=== PATIENT | female | born 1950 | race Caucasian/White ===

== ENCOUNTER → 2020-08-21 11:05 | Outpatient (CLI) | payer MEDICARE, SELFPAY ==
--- NOTE | 2020-08-21 | DI.US.S_ITS ---
PROCEDURE: US THYROID INDICATIONS: Hypothyroidism, unspecified TECHNIQUE: Real-time scanning was performed of the thyroid gland, with image documentation. COMPARISON: None. FINDINGS: Right: Thyroid lobe measures 6.0 x 2.1 x 2.2 cm, and is slightly heterogeneous in echotexture. No dominant nodule. Left: Thyroid lobe measures 5.6 x 1.9 x 2.6 cm, and is slightly heterogeneous in echotexture. No dominant nodule. Isthmus: Five mm thick. IMPRESSION: Mildly heterogeneous thyroid gland without dominant nodule. Findings are compatible with hypothyroidism. Dictated by: Elsie Patel M.D. on 08/21/2020 at 13:05 Approved by: Elsie Patel M.D. on 08/21/2020 at 13:06
== END ==
PROVIDERS: Family Provider Family Medicine; PCP Family Medicine; Referring Provider Family Medicine; Visit Provider Family Medicine
DX: E03.9 Hypothyroidism, unspecified (principal)
CPT/HCPCS: 76536

== ENCOUNTER → 2022-06-22 09:10 | Outpatient (CLI) | payer MEDICARE, SELFPAY ==
--- NOTE | 2022-06-22 09:13 | DI.RAD.S_ITS ---
PROCEDURE: XR HAND LT MIN 3V INDICATIONS: LEFT HAND AND WRIST PAIN TECHNIQUE: 3 views of the hand acquired. COMPARISON: None. FINDINGS: Bones: No acute fractures or dislocations. Carpal bones are normally aligned. No suspicious bony lesions. Generalized osteopenia. Emfr-ks-[id number] degenerative changes at the 1st carpometacarpal joint and triscaphe joint and there are mild degenerative changes at the interphalangeal joints of the fingers. Soft tissues: No suspicious soft tissue calcifications. IMPRESSION: Fwji-mc-mnjkpaxb osteoarthrosis. Generalized osteopenia. No acute osseous abnormality. Approved by: Devon Jackson M.D. on 06/22/2022 at 12:44
--- NOTE | 2022-06-22 09:13 | DI.RAD.S_ITS ---
PROCEDURE: XR HIP W PEL IF DONE RT 2V INDICATIONS: RIGHT HIP PAIN TECHNIQUE: AP pelvis with lateral few of the right hip. COMPARISON: None. FINDINGS: Bones: No fractures or dislocations. Pelvic ring appears intact. No suspicious bony lesions. Mild degenerative changes in the hips with marginal osteophyte formation. Mild degenerative changes are seen in the included lumbar spine. Soft tissues: The visualized bowel gas pattern is normal. No suspicious soft tissue calcifications. IMPRESSION: Mild bilateral hip osteoarthrosis. Approved by: Devon Jackson M.D. on 06/22/2022 at 12:45
--- NOTE | 2022-06-22 09:13 | DI.RAD.S_ITS ---
PROCEDURE: XR WRIST LT MIN 3V INDICATIONS: LEFT HAND AND WRIST PAIN TECHNIQUE: 3 views of the wrist were acquired. COMPARISON: None. FINDINGS: Bones: No acute fractures or dislocations. Generalized osteopenia. [id number] degenerative changes are seen at the 1st carpometacarpal joint and the triscaphe joint. No suspicious bony lesions. Soft tissues: No suspicious soft tissue calcifications. IMPRESSION: Kdgy-al-krzxvvmx osteoarthrosis of the 1st carpometacarpal and triscaphe joints. Generalized osteopenia. No acute osseous abnormality. Approved by: Devon Jackson M.D. on 06/22/2022 at 12:46
== END ==
PROVIDERS: Family Provider Family Medicine; PCP Family Medicine; Referring Provider Family Medicine; Visit Provider Family Medicine
DX: M18.12 Unilateral primary osteoarthritis of first carpometacarpal joint, left hand (principal); M19.032 Primary osteoarthritis, left wrist; M85.842 Other specified disorders of bone density and structure, left hand; M16.0 Bilateral primary osteoarthritis of hip; M25.542 Pain in joints of left hand; M25.551 Pain in right hip
CPT/HCPCS: 73110; 73130; 73502